=== PATIENT | male | born 1980 | race Caucasian/White ===

== ENCOUNTER 2018-01-01 22:21 | Emergency (ER) | payer MEDICAID ==
[~2018-01-01] VITALS: Ht 172.7 cm; Wt 79.0 kg
[~2018-01-01 22:21] MED LIST: BACDS PO; HYDR-569 PO; IBUP-1985 PO; IBUP-1986 PO; NO HOME MEDS; PERM60CR4 TP
[2018-01-01] MEDS ORDERED: triamcinolone acetonide 40mg/ml inj IM ONE (23:25)
[2018-01-01] MEDS ORDERED: PRED10TA PO (23:26)
[2018-01-01 23:41] VITALS: BP 129/86
== END 2018-01-01 23:42 | disposition home or self-care (01) ==
LOC: ER 22:21
DX: L23.7 Allergic contact dermatitis due to plants, except food (principal); Z88.5 Allergy status to narcotic agent; Z79.2 Long term (current) use of antibiotics; Z79.899 Other long term (current) drug therapy
CPT/HCPCS: 96372; 99283; J3301

== ENCOUNTER 2018-01-18 18:10 | Emergency (ER) | payer MEDICAID ==
[~2018-01-18] VITALS: Ht 172.7 cm; Wt 73.5 kg
[~2018-01-18 18:10] MED LIST changes: +PRED10TA PO
[2018-01-18 18:34] VITALS: BP 119/68
[2018-01-18] MEDS ORDERED: PRED20TA PO (20:06)
== END 2018-01-18 20:37 | disposition home or self-care (01) ==
LOC: ER 18:29
DX: L23.9 Allergic contact dermatitis, unspecified cause (principal); Z87.442 Personal history of urinary calculi; Z88.5 Allergy status to narcotic agent; Z79.899 Other long term (current) drug therapy
CPT/HCPCS: 99283

== ENCOUNTER 2018-01-18 22:13 | Emergency (ER) | payer MEDICAID ==
[~2018-01-18] VITALS: Ht 172.7 cm; Wt 73.5 kg
[~2018-01-18 22:13] MED LIST changes: +PRED20TA PO
[2018-01-18 22:25] VITALS: BP 119/68
== END 2018-01-19 00:50 | disposition left against medical advice (07) ==
LOC: ER 22:13
DX: R21 Rash and other nonspecific skin eruption (principal); Z53.21 Procedure and treatment not carried out due to patient leaving prior to being seen by health care provider

== ENCOUNTER 2018-01-21 13:40 | Emergency (ER) | payer MEDICAID ==
[~2018-01-21] VITALS: Ht 172.7 cm; Wt 72.5 kg
[2018-01-21] MEDS ORDERED: HYDR28CR14 TOP (14:36)
[2018-01-21 14:49] VITALS: BP 131/89
== END 2018-01-21 14:50 | disposition home or self-care (01) ==
LOC: ER 13:41
DX: L50.9 Urticaria, unspecified (principal); Z87.442 Personal history of urinary calculi; Z88.5 Allergy status to narcotic agent; Z79.899 Other long term (current) drug therapy
CPT/HCPCS: 99282

== ENCOUNTER 2018-10-22 21:28 | Emergency (ER) | payer MEDICAID ==
[~2018-10-22] VITALS: Ht 172.7 cm; Wt 65.8 kg
[~2018-10-22 21:28] MED LIST changes: +HYDR-4383 PO; -HYDR-569 PO; +HYDR28CR14 TOP; -PRED20TA PO
[2018-10-22 21:34] VITALS: BP 118/71
[2018-10-22] MEDS ORDERED: dexamethasone sod phosphate 10mg/ml inj PO STA (22:40)
[2018-10-22] MEDS ORDERED: HYDR-3686 PO (22:43)
[2018-10-22] MEDS ORDERED: METH4TAB81 PO (22:43)
== END 2018-10-22 22:58 | disposition home or self-care (01) ==
LOC: ER 21:29
DX: L23.7 Allergic contact dermatitis due to plants, except food (principal); F17.200 Nicotine dependence, unspecified, uncomplicated; Z87.442 Personal history of urinary calculi; Z88.5 Allergy status to narcotic agent; Z79.899 Other long term (current) drug therapy
CPT/HCPCS: 99283; J1100

== ENCOUNTER 2019-02-20 20:07 | Emergency (ER) | payer MEDICAID ==
[~2019-02-20] VITALS: Ht 172.7 cm; Wt 71.8 kg
[~2019-02-20 20:07] MED LIST changes: +METH4TAB81 PO
[2019-02-20 20:10] VITALS: BP 131/80
--- NOTE | 2019-02-20 20:58 | NUR ---
PATIENT HERE FOR TOOTH PAIN AND FACIAL SWELLING
[2019-02-20] MEDS ORDERED: PENI500T2 PO (21:03)
[2019-02-20] MEDS ORDERED: HYDR-4353 PO (21:03)
[2019-02-20] MEDS ORDERED: IBUP-1986 PO (21:03)
== END 2019-02-20 21:23 | disposition home or self-care (01) ==
LOC: ER 20:07
DX: K04.7 Periapical abscess without sinus (principal); K02.9 Dental caries, unspecified; F17.210 Nicotine dependence, cigarettes, uncomplicated; Z88.5 Allergy status to narcotic agent; Z79.2 Long term (current) use of antibiotics; Z79.899 Other long term (current) drug therapy
CPT/HCPCS: 99283

== ENCOUNTER 2019-05-25 08:07 | Emergency (ER) | payer MEDICAID ==
[~2019-05-25] VITALS: Ht 172.7 cm; Wt 84.1 kg
[2019-05-25 08:19] VITALS: BP 132/88
[2019-05-25] MEDS ORDERED: clindamycin 150mg capsule PO ONE (09:10)
[2019-05-25] MEDS ORDERED: CLIN-90 PO (09:14)
== END 2019-05-25 09:31 | disposition home or self-care (01) ==
LOC: ER 08:07
DX: K04.7 Periapical abscess without sinus (principal); K02.9 Dental caries, unspecified; F17.200 Nicotine dependence, unspecified, uncomplicated; Z88.5 Allergy status to narcotic agent; Z79.2 Long term (current) use of antibiotics; Z79.899 Other long term (current) drug therapy
CPT/HCPCS: 99283

== ENCOUNTER 2020-05-11 06:13 | Emergency (ER) | payer MEDICAID ==
[~2020-05-11] VITALS: Ht 172.7 cm; Wt 76.4 kg
[~2020-05-11 06:13] MED LIST changes: +CLIN-97 PO
[2020-05-11 06:15] VITALS: BP 130/76
[2020-05-11] MEDS ORDERED: NEOM10DR45 RIGHT EAR (06:32)
== END 2020-05-11 06:51 | disposition home or self-care (01) ==
LOC: ER 06:14
DX: H60.392 Other infective otitis externa, left ear (principal); Z87.442 Personal history of urinary calculi; Z72.89 Other problems related to lifestyle; Z88.5 Allergy status to narcotic agent; Z79.2 Long term (current) use of antibiotics; Z79.899 Other long term (current) drug therapy
CPT/HCPCS: 99283

== ENCOUNTER 2020-06-04 19:12 | Emergency (ER) | payer MEDICAID ==
[~2020-06-04] VITALS: Ht 172.7 cm; Wt 77.8 kg
[2020-06-04 19:16] VITALS: BP 114/71
[2020-06-04] MEDS ORDERED: cyclobenzaprine 10mg tablet PO ONE (19:50)
[2020-06-04] MEDS ORDERED: CYCL-1 PO (19:50)
[2020-06-04] MEDS ORDERED: ketorolac tromethamine 15mg/ml inj. IM ONE (19:50)
== END 2020-06-04 20:26 | disposition home or self-care (01) ==
LOC: ER 19:13
DX: N20.0 Calculus of kidney (principal); Z88.0 Allergy status to penicillin; Z79.899 Other long term (current) drug therapy
CPT/HCPCS: 96372; 99283; J1885

== ENCOUNTER 2021-09-10 00:17 | Emergency (ER) | payer MEDICAID ==
[~2021-09-10] VITALS: Ht 172.7 cm; Wt 84.1 kg
[~2021-09-10 00:17] MED LIST changes: +CYCL-1 PO
[2021-09-10 00:25] VITALS: BP 143/94
== END 2021-09-10 01:32 | disposition home or self-care (01) ==
LOC: ER 00:17
DX: L23.7 Allergic contact dermatitis due to plants, except food (principal); Z87.442 Personal history of urinary calculi; Z72.89 Other problems related to lifestyle; Z88.5 Allergy status to narcotic agent; Z79.2 Long term (current) use of antibiotics; Z79.899 Other long term (current) drug therapy
CPT/HCPCS: 99282

== ENCOUNTER 2025-01-25 09:34 | Emergency (ER) | payer MEDICAID ==
[~2025-01-25] VITALS: Ht 172.7 cm; Wt 85.5 kg
[~2025-01-25 09:34] MED LIST changes: +CLIN-224 PO; -CLIN-97 PO
--- NOTE | 2025-01-25 10:05 | Physician Documentation ---
History of Present Illness ~ Chief Complaint: Diarrhea Stated Complaint: VOMITING/DIARRHEA Time Seen by MD: 11:30 Primary Medical Doctor: Cesia RAMÍREZ 45-year-old male complains of 3 or 4 days of nausea vomiting diarrhea, reports being otherwise healthy Medication Reconciliation Allergies: Coded Allergies: codeine (Verified Allergy, Unknown, 01/25/25) Scheduled Clindamycin HCL* (Clindamycin HCL*), 1 CAP PO Q6H Cyclobenzaprine* (Cyclobenzaprine*), 1 TAB PO Q8H Hydrocortisone (hydrocortisone 1% cream), 1 APPLIC TOP Q12H Ibuprofen (Ibuprofen), 1 TAB PO Q8H Ibuprofen (Ibuprofen), 1 TAB PO Q8H Ibuprofen (Ibuprofen), 1 TAB PO Q8H Methylprednisolone (Medrol Dosepak), 4 MG PO UD Permethrin (Permethrin), 1 APPLIC TP O Prednisone (Prednisone), 0 PO DAILY Sulfamethoxazole/Trimethoprim DS* (Bactrim DS Tab*), 1 TAB PO BID Scheduled PRN Hydrocodone/Acetaminophen (Armbrust 5-325 Tablet), 1 TABLET PO TID PRN for pain ONDANSETRON ODT 4mg tablet (Ondansetron Odt), 1 TAB PO Q6H PRN PRN for nausea/vomiting Miscellaneous Medications Home Med List (No Home Medications), (Reported) Past Medical History Past Medical History: Kidney Stones Past Surgical History: no surgical history Alcohol Use: Occasionally Drug Use: none Lives with: Family Lives In: Home Occupation: employed Physical Exam Vital Signs: Temperature: 97.9, Source: Temporal, Heart Rate: 83, Respiratory Rate: 16, BP: 114/87, Pulse Oximetry: 97, Weight: 85.450 Oxygen Flow Rate: 0 Progress Results/Orders Results/Orders Orders - BENITA RED [employer] Ct Abdomen Pelvis (01/25/25 12:32) Completed Orders - BENITA [employer] Normal Saline 1000ml (0.9% Sodium Chlori (01/25/25 11:40) Ondansetron Inj. (Zofran 4mg/2ml Vial) (01/25/25 11:40) Ketorolac Trometh 30mg/Ml Vial (Toradol (01/25/25 12:30) Ct Abdomen Pelvis (01/25/25 12:32) Medications Received in ER Medications (Trade) Dose Ordered Sig/Otto Route PRN Reason Start Time Stop Time Status Last Admin Dose Admin (0.9% sodium chloride (NS) 1000ml IV soln) 2,000 ml ONCE ONCE IVB 01/25/25 11:40 01/25/25 11:41 DC 01/25/25 12:14 2,000 ML (Zofran 4mg/2ml vial) 4 mg ONCE ONCE IV 01/25/25 11:40 01/25/25 11:41 DC 01/25/25 12:14 4 MG Vital Signs 01/25/25 01/25/25 01/25/25 09:45 11:41 13:21 Temp 97.9 97.9 Pulse 83 72 Resp 16 14 B/P (MAP) 114/87 123/68 (86) Pulse Ox 97 98 O2 Flow Rate 0 0 Laboratory Tests Test 01/25/25 10:02 01/25/25 12:06 White Blood Count 14.1 H Red Blood Count 5.91 Hemoglobin 17.9 Hematocrit 52.4 H Mean Corpuscular Volume 88.7 Mean Corpuscular Hemoglobin 30.3 Mean Corpuscular Hemoglobin Concent 34.2 Red Cell Distribution Width 14.3 Platelet Count 179 Mean Platelet Volume 7.9 Neutrophils (%) (Auto) 80.4 H Lymphocytes (%) (Auto) 11.3 L Monocytes (%) (Auto) 7.0 Eosinophils (%) (Auto) 0.7 Basophils (%) (Auto) 0.6 Neutrophils # (Auto) 11.3 H Lymphocytes # (Auto) 1.6 Monocytes # (Auto) 1.0 H Eosinophils # (Auto) 0.1 Basophils # (Auto) 0.1 CBC Comment Sodium Level 136 Potassium Level 3.8 Chloride Level 102 Carbon Dioxide Level 23.4 L Anion Gap 11 Blood Urea Nitrogen 14 Creatinine 0.84 Estimated GFR/1.73 m2 > 90 BUN/Creatinine Ratio 16.7 Glucose Level 139 H Calcium Level 8.9 Total Bilirubin 1.2 H Aspartate Amino Transf (AST/SGOT) 28 Alanine Aminotransferase (ALT/SGPT) 52 Alkaline Phosphatase 96 Total Protein 7.6 Albumin 3.7 Globulin 3.9 Albumin/Globulin Ratio 0.9 L Lipase 29 Chemistry Comments Urine Specimen Description Cln catch midstream Urine Color Yellow Urine Clarity Clear Urine pH 6.0 Urine Specific [place] 1.025 Urine Protein 30 H Urine Glucose (UA) Negative Urine Ketones Negative Urine Occult Blood Moderate H Urine Nitrite Negative Urine Bilirubin Small Urine Urobilinogen 0.2 Urine Leukocyte Esterase Negative Urine RBC 10-20 Urine WBC 0-4 Urine Squamous Epithelial Cells Few Urine Bacteria Few Urine Cellular Casts Urine Fine Granular Casts Urine Coarse Granular Casts 0-3 Urine Mucus Few Urine Sperm Moderate Urine Culture Indicated Not ind Volume Urine Centrifuged 10 ml Urine Comment Medical Decision Making Findings Initially I suspected that viral gastroenteritis was the primary cause of the patient's symptoms however upon further evaluation, he appeared to have a flank pain on the right side. negative CVA tenderness however. CT findings Limited Transthoracic Echocardiogram performed by me: Indication: Chest Pain/Shortness of breath, rule out pericardial effusion/CHF Pericardium: No effusion Cardiac: Normal contraction Images archived in the medical record. These concerns with a non Departure Disposition: 01 HOME / SELF CARE / HOMELESS Impression: Primary Impression: Viral gastroenteritis Condition: Stable Discharge Instructions: Diarrhea, Adult Referrals: NO PRIMARY CARE PROVIDER (PCP) Prescriptions ONDANSETRON ODT 4mg tablet (ONDANSETRON ODT) 4 Mg Tab.rapdis 1 TAB PO Q6H PRN PRN for nausea/vomiting for 4 Days, #16 TAB 0 Refills Prov: BENITA RED NP 01/25/25 Signature Scribe Signature: d Attestation: Scribed for Benita Red Behavioral Analyst by Benita Red - KOMAL . 01/25/25 14:12 BENITA [employer] Jan 25, 2025 10:05
[2025-01-25 10:47] LABS: MEAN PLATELET VOLUME 7.9 FL (7.4-10.4); RED CELL DISTRIBUTION WIDTH 14.3 % (11.5-14.5)
[2025-01-25 11:03] LABS: CREATININE 0.84 MG/DL (0.60-1.10); TOTAL CARBON DIOXIDE 23.4 MMOL/L (24-32); eCRCL 107 ML/MIN; eGFR > 90 ML/MIN
[2025-01-25 12:13] LABS: LEUKOCYTE ESTERASE ,URINE NEGATIVE (Neg); NITRITES, URINE NEGATIVE (Neg); OCCULT BLOOD,URINE MODERATE (Neg)
[2025-01-25 12:14] LABS: UA COLLECTION TYPE CLN CATCH MIDSTREAM
[2025-01-25] MEDS: normal saline 1000ML IV soln IVB ONE (12:14)
[2025-01-25] MEDS: ondansetron/PF 4mg/2ml inj IV ONE (12:14)
[2025-01-25 12:19] LABS: SQUAMOUS EPITHELIAL CELL,UR FEW /LPF (FEW)
[2025-01-25 12:21] LABS: SPERM MODERATE /HPF (NEGATIVE)
[2025-01-25 12:22] LABS: MUCUS STRANDS FEW /LPF (Neg)
[2025-01-25 12:25] LABS: COARSE GRANULAR CAST 0-3 /LPF (NEGATIVE)
[2025-01-25] MEDS: ketorolac trometh 30MG/ML vial 30 MG/ML VIAL IV ONE (12:30)
--- NOTE | 2025-01-25 13:48 | RADIOLOGY REPORT ---
Exam: CT CT ABDOMEN PELVIS History: suspected kidney stones Comparison Study: None Technique: Multidetector spiral CT of the abdomen and pelvis was performed from lung bases to pubic symphysis. Imaging was performed without IV contrast. Axial, coronal and sagittal multiplanar reform ats were obtained from the axial data set by the technologist. Radiation dose : Abdomen/Pelvis: CTDIvol 22 mGy, DLP 1143 mGy*cm. Findings: Evaluation of solid organs is limited due to lack of intravenous contrast use. Lung Bases: No acute or significant lung base finding. Normal heart size. No pleural or pericardial effusion. Liver: Diffuse hepatic steatosis. Gallbladder and biliary Tree: Unremarkable Spleen: Unremarkable Pancreas: The pancreas is grossly normal in appearance. Adrenal Glands: Unremarkable Kidneys: No significant hydronephrosis. Punctate calculus in the mid right ureter measuring up to 2 mm. Punctate left renal calculi. Bladder: Grossly unremarkable for degree of distention. Bowel: The stomach is grossly normal in appearance. Small bowel and colon are normal in caliber and d istribution. Normal appendix is visualized in the right lower quadrant without findings of appendicit is. Diffuse wall thickening of the colon. Sigmoid diverticulosis. Mild stranding around the right co jimenez. Ascites: Absent Lymphadenopathy: Shotty retroperitoneal lymphadenopathy. Abdominal wall and Mesentery: Mild stranding around the right colon. Vasculature: Calcified atherosclerotic disease. Pelvic Organs: Unremarkable Musculoskeletal: No aggressive focal bony lesions, acute fractures or dislocation. IMPRESSION: 1. Minimally obstructing/nonobstructing calculus in the mid right ureter measuring up to 2 mm. Puncta te nonobstructive left renal calculi. Urology evaluation is recommended. 2. Diffuse wall thickening of the colon. Stranding around the right colon. Suspect infectious/ infla mmatory colitis. Clinical correlation continued follow-up is recommended. 3. Diffuse hepatic steatosis. Sigmoid diverticulosis. Shotty retroperitoneal lymphadenopathy. Radiation optimization: All CT scans at this facility use at least one of these dose optimization janessa hniques: Automated exposure control mA and/or kV adjustment per patient size (includes targeted exams where dose is matched to clinical indication) or iterative reconstruction. HS:Y
[2025-01-25] MEDS ORDERED: ONDA-243 PO (14:11)
[2025-01-25 14:30] VITALS: BP 128/80; PULSE 78; RESP 18; TEMP 97.9; O2SAT 98
== END 2025-01-25 14:35 | disposition home or self-care (01) ==
LOC: ER 09:35
DX: A08.4 Viral intestinal infection, unspecified (principal); Z88.5 Allergy status to narcotic agent; Z79.899 Other long term (current) drug therapy; Z87.442 Personal history of urinary calculi; Z72.89 Other problems related to lifestyle
CPT/HCPCS: 36415; 74176; 80053; 81001; 83690; 85025; 96361; 96374; 99285; J2405; J7030